=== PATIENT | female | born 1985 | race Two or more races ===

== ENCOUNTER 2025-05-19 11:12 | Emergency (ER) | payer SELFPAY ==
[2025-05-19] MEDS: traMADol 50 MG Tab PO ONE (11:42)
[2025-05-19] MEDS: Tetracaine HCl/PF 0.5% 4 ML Bottle EYEBOTH ONE (11:43)
[2025-05-19] MEDS: Bacitracin Oint 1 GM U/D Packet TOP ONE (11:44)
[2025-05-19] MEDS: Diphtheria,Pertussis(Acell),Tetanus Vaccine 0.5 ML Syringe IM ONE (11:44)
[2025-05-19] MEDS: Erythromycin Base 0.5% Ophth Oint 1 GM Tube EYEBOTH ONE (11:51)
== END 2025-05-19 12:02 | disposition home or self-care (01) ==
LOC: MW.ED 11:12
DX: T20.16XA Burn of first degree of forehead and cheek, initial encounter (principal); T21.11XA Burn of first degree of chest wall, initial encounter; Z79.899 Other long term (current) drug therapy; Z23 Encounter for immunization; X10.1XXA Contact with hot food, initial encounter; Y93.89 Activity, other specified
CPT/HCPCS: 90471; 90715; 99283; A9270; 99284; J3490